=== PATIENT | male | born 2000 | race American Indian/Alaskan Native ===

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

== ENCOUNTER → 2018-01-21 | Outpatient (CLI) | payer OTHER ==
[2018-01-21 16:57] LABS: BASO % 0.3 % (0.0-1.0); EOS # 0.1 10^3/uL (0.0-0.50); EOS % 2.3 % (0.0-3.0); HEMATOCRIT 46.5 % (42.0-52.0); HEMOGLOBIN 15.6 g/dl (13.5-17.5); IMMATURE GRANULOCYTE % 0.3 % (0-3.0); LYMPH # 1.6 10^3/uL (1.5-6.5); LYMPH % 26.7 % (24.0-44.0); MEAN CORPUSCULAR HEMOGLOBIN 28.5 pg (27.0-33.0); MEAN CORPUSCULAR HGB CONC 33.5 g/dl (32.0-36.5); MEAN CORPUSCULAR VOLUME 84.9 fl (80.0-96.0); MONO # 0.4 10^3/uL (0.0-0.8); MONO % 6.1 % (0.0-5.0); NEUTROPHILS # 3.9 10^3/uL (1.8-7.7); NEUTROPHILS % 64.3 % (36.0-66.0); PLATELET COUNT, AUTOMATED 302 10^3/uL (150-450); RED BLOOD COUNT 5.48 10^6/uL (4.30-6.10); RED CELL DISTRIBUTION WIDTH 12.2 % (11.5-14.5)
[2018-01-21 17:20] LABS: ALBUMIN 4.3 GM/DL (3.2-5.2); ALBUMIN/GLOBULIN RATIO 1.19 (1.00-1.93); ALKALINE PHOSPHATASE 55 U/L (45-117); ALT/SGPT 59 U/L (12-78); ANION GAP 8 MEQ/L (8-16); AST/SGOT 26 U/L (7-37); BILIRUBIN,TOTAL 0.4 MG/DL (0.2-1.0); BLOOD UREA NITROGEN 13 MG/DL (7-18); CALCIUM LEVEL 9.4 MG/DL (8.5-10.1); CARBON DIOXIDE LEVEL 29 MEQ/L (21-32); CHLORIDE LEVEL 106 MEQ/L (98-107); CREATININE FOR GFR 1.07 MG/DL (0.70-1.30); GLUCOSE, FASTING 105 MG/DL (70-100); POTASSIUM SERUM 3.9 MEQ/L (3.5-5.1); SODIUM LEVEL 143 MEQ/L (136-145); TOTAL PROTEIN 7.9 GM/DL (6.4-8.2)
== END ==
LOC: M LAB 16:29
DX: Z51.81 Encounter for therapeutic drug level monitoring (principal); Z79.899 Other long term (current) drug therapy
CPT/HCPCS: 80053

== ENCOUNTER → 2018-03-20 | Outpatient (CLI) | payer OTHER ==
[2018-03-20 19:53] LABS: BASO % 0.5 % (0.0-1.0); EOS # 0.1 10^3/uL (0.0-0.50); EOS % 3.2 % (0.0-3.0); HEMATOCRIT 43.4 % (42.0-52.0); HEMOGLOBIN 14.2 g/dl (13.5-17.5); LYMPH # 1.3 10^3/uL (1.5-6.5); LYMPH % 31.8 % (24.0-44.0); MEAN CORPUSCULAR HEMOGLOBIN 28.2 pg (27.0-33.0); MEAN CORPUSCULAR HGB CONC 32.7 g/dl (32.0-36.5); MEAN CORPUSCULAR VOLUME 86.1 fl (80.0-96.0); MONO # 0.3 10^3/uL (0.0-0.8); MONO % 7.1 % (0.0-5.0); NEUTROPHILS # 2.4 10^3/uL (1.8-7.7); NEUTROPHILS % 57.4 % (36.0-66.0); PLATELET COUNT, AUTOMATED 311 10^3/uL (150-450); RED BLOOD COUNT 5.04 10^6/uL (4.30-6.10); RED CELL DISTRIBUTION WIDTH 12.3 % (11.5-14.5); WHITE BLOOD COUNT 4.1 10^3/uL (4.0-10.0)
[2018-03-20 20:14] LABS: ALBUMIN/GLOBULIN RATIO 1.18 (1.00-1.93); ALKALINE PHOSPHATASE 60 U/L (45-117); ALT/SGPT 62 U/L (12-78); ANION GAP 7 MEQ/L (8-16); AST/SGOT 31 U/L (7-37); BILIRUBIN,TOTAL 0.8 MG/DL (0.2-1.0); BLOOD UREA NITROGEN 14 MG/DL (7-18); CALCIUM LEVEL 8.7 MG/DL (8.5-10.1); CARBON DIOXIDE LEVEL 29 MEQ/L (21-32); CHLORIDE LEVEL 106 MEQ/L (98-107); CREATININE FOR GFR 1.05 MG/DL (0.70-1.30); GLUCOSE, FASTING 111 MG/DL (70-100); POTASSIUM SERUM 4.4 MEQ/L (3.5-5.1); SODIUM LEVEL 142 MEQ/L (136-145); TOTAL PROTEIN 7.4 GM/DL (6.4-8.2)
== END ==
LOC: M WUC 15:45
DX: L40.0 Psoriasis vulgaris (principal)
CPT/HCPCS: 80053

== ENCOUNTER → 2018-06-20 | Outpatient (CLI) | payer OTHER ==
[2018-06-20 18:08] LABS: BASO % 0.4 % (0.0-1.0); EOS # 0.1 10^3/uL (0.0-0.50); EOS % 2.5 % (0.0-3.0); HEMATOCRIT 47.6 % (42.0-52.0); HEMOGLOBIN 15.5 g/dl (13.5-17.5); LYMPH # 1.7 10^3/uL (1.5-6.5); LYMPH % 35.2 % (24.0-44.0); MEAN CORPUSCULAR HEMOGLOBIN 28.7 pg (27.0-33.0); MEAN CORPUSCULAR HGB CONC 32.6 g/dl (32.0-36.5); MONO # 0.2 10^3/uL (0.0-0.8); MONO % 4.9 % (0.0-5.0); NEUTROPHILS # 2.8 10^3/uL (1.8-7.7); NEUTROPHILS % 56.8 % (36.0-66.0); PLATELET COUNT, AUTOMATED 316 10^3/uL (150-450); RED BLOOD COUNT 5.41 10^6/uL (4.30-6.10); WHITE BLOOD COUNT 4.9 10^3/uL (4.0-10.0)
[2018-06-20 18:11] LABS: ALBUMIN 4.2 GM/DL (3.2-5.2); ALT/SGPT 41 U/L (12-78); BILIRUBIN,TOTAL 0.7 MG/DL (0.2-1.0); BLOOD UREA NITROGEN 14 MG/DL (7-18); CALCIUM LEVEL 9.1 MG/DL (8.5-10.1); CARBON DIOXIDE LEVEL 29 MEQ/L (21-32); CHLORIDE LEVEL 106 MEQ/L (98-107); CREATININE FOR GFR 0.93 MG/DL (0.70-1.30); GLUCOSE, FASTING 118 MG/DL (70-100); POTASSIUM SERUM 4.4 MEQ/L (3.5-5.1); SODIUM LEVEL 142 MEQ/L (136-145); TOTAL PROTEIN 7.6 GM/DL (6.4-8.2)
== END ==
LOC: M WUC 15:06
PROVIDERS: ATTEND Nurse Practitioner Adult Health
DX: L40.0 Psoriasis vulgaris (principal); Z79.899 Other long term (current) drug therapy; Z71.89 Other specified counseling

== ENCOUNTER → 2019-01-25 | Outpatient (CLI) | payer OTHER ==
[2019-01-25 18:35] LABS: ALBUMIN 4.1 GM/DL (3.2-5.2); ALT/SGPT 34 U/L (12-78); BILIRUBIN,TOTAL 0.6 MG/DL (0.2-1.0); BLOOD UREA NITROGEN 13 MG/DL (7-18); CARBON DIOXIDE LEVEL 29 MEQ/L (21-32); CHLORIDE LEVEL 104 MEQ/L (98-107); CREATININE FOR GFR 1.04 MG/DL (0.70-1.30); GLUCOSE, FASTING 88 MG/DL (70-100); POTASSIUM SERUM 4.1 MEQ/L (3.5-5.1); SODIUM LEVEL 141 MEQ/L (136-145); TOTAL PROTEIN 7.6 GM/DL (6.4-8.2)
[2019-01-25 18:36] LABS: BASO % 0.6 % (0.0-1.0); EOS # 0.3 10^3/uL (0.0-0.5); EOS % 5.1 % (0.0-3.0); HEMATOCRIT 45.5 % (42.0-52.0); HEMOGLOBIN 14.8 g/dl (13.5-17.5); LYMPH # 2.3 10^3/uL (1.5-5.0); LYMPH % 36.2 % (24.0-44.0); MEAN CORPUSCULAR HEMOGLOBIN 28.7 pg (27.0-33.0); MEAN CORPUSCULAR HGB CONC 32.5 g/dl (32.0-36.5); MEAN CORPUSCULAR VOLUME 88.2 fl (80.0-96.0); MONO # 0.4 10^3/uL (0.0-0.8); MONO % 6.4 % (0.0-5.0); NEUTROPHILS # 3.2 10^3/uL (1.5-8.5); NEUTROPHILS % 51.4 % (36.0-66.0); PLATELET COUNT, AUTOMATED 292 10^3/uL (150-450); RED BLOOD COUNT 5.16 10^6/uL (4.30-6.10); WHITE BLOOD COUNT 6.2 10^3/uL (4.0-10.0)
== END ==
LOC: M WUC 14:21
PROVIDERS: ATTEND Nurse Practitioner Adult Health
DX: Z51.81 Encounter for therapeutic drug level monitoring (principal); Z79.899 Other long term (current) drug therapy; L40.0 Psoriasis vulgaris; Z71.89 Other specified counseling

== ENCOUNTER 2019-07-10 12:46 | Observation (INO) | payer OTHER ==
[~2019-07-10] VITALS: Ht 182.9 cm; Wt 112.4 kg
[2019-07-10] MEDS ORDERED: HUMI40KI2 INJ (13:19)
[2019-07-10 13:30] LABS: BASO % 0.7 % (0.0-1.0); EOS # 0.2 10^3/uL (0.0-0.5); EOS % 3.2 % (0.0-3.0); HEMATOCRIT 50.3 % (42.0-52.0); HEMOGLOBIN 16.7 g/dl (13.5-17.5); LYMPH # 1.8 10^3/uL (1.5-5.0); LYMPH % 30.3 % (24.0-44.0); MEAN CORPUSCULAR HEMOGLOBIN 28.4 pg (27.0-33.0); MEAN CORPUSCULAR HGB CONC 33.2 g/dl (32.0-36.5); MEAN CORPUSCULAR VOLUME 85.4 fl (80.0-96.0); MONO # 0.4 10^3/uL (0.0-0.8); MONO % 6.7 % (0.0-5.0); NEUTROPHILS # 3.5 10^3/uL (1.5-8.5); NEUTROPHILS % 58.8 % (36.0-66.0); PLATELET COUNT, AUTOMATED 300 10^3/uL (150-450); RED BLOOD COUNT 5.89 10^6/uL (4.30-6.10)
[2019-07-10 13:46] LABS: MAGNESIUM LEVEL 2.2 MG/DL (1.8-2.4); PHOSPHORUS LEVEL 3.6 MG/DL (2.5-4.9)
--- NOTE | 2019-07-10 13:46 | REP ---
Clinical: Chest pain . Comparison: None . Technique: PA and lateral. Findings: The mediastinum and cardiac silhouette are normal. The lung cano are clear and without acute consolidation, effusion, or pneumothorax. The skeletal structures are intact and normal. Impression: 1. No acute cardiopulmonary process. Electronically Signed by Phillip Estevez MD 07/10/2019 01:37 P
[2019-07-10 13:59] LABS: ALBUMIN 4.5 GM/DL (3.2-5.2); ALT/SGPT 52 U/L (12-78); BILIRUBIN,DIRECT 0.2 MG/DL (0.0-0.2); BILIRUBIN,TOTAL 0.5 MG/DL (0.2-1.0); BLOOD UREA NITROGEN 11 MG/DL (7-18); CALCIUM LEVEL 9.5 MG/DL (8.5-10.1); CARBON DIOXIDE LEVEL 26 MEQ/L (21-32); CHLORIDE LEVEL 108 MEQ/L (98-107); CK-MB VALUE MASS < 1.0 NG/ML (<3.6); CPK CREATINE PHOSPHOKINASE 103 U/L (39-308); CREATININE FOR GFR 0.93 MG/DL (0.70-1.30); FREE T4 1.11 NG/DL (0.76-1.46); GLOMERULAR FILTRATION RATE > 60.0 (>60); GLUCOSE, FASTING 96 MG/DL (70-100); MB/CK RELATIVE INDEX 0.97 (< OR =4); POTASSIUM SERUM 4.1 MEQ/L (3.5-5.1); SODIUM LEVEL 140 MEQ/L (136-145); TOTAL PROTEIN 8.6 GM/DL (6.4-8.2); TROPONIN I < 0.02 NG/ML (< 0.10)
[2019-07-10 14:00] LABS: AMPHETAMINES LEVEL URINE NEGATIVE (NEGATIVE); BARBITURATES URINE NEGATIVE (NEGATIVE); BENZODIAZEPINES URINE NEGATIVE (NEGATIVE); CANNABINOIDS URINE NEGATIVE (NEGATIVE); COCAINE METABOLITE URINE NEGATIVE (NEGATIVE); METHADONE URINE NEGATIVE (NEGATIVE); OPIATES URINE NEGATIVE (NEGATIVE); PHENCYCLIDINE URINE NEGATIVE (NEGATIVE)
[2019-07-10] MEDS: METOPROLOL 5 MG/5 ML VIAL IV SCH ×3 (14:19→14:31)
[2019-07-10] MEDS ORDERED: CALC0.009 TOP (14:52)
[2019-07-10] MEDS ORDERED: ASPI81CH8 PO (15:04)
[2019-07-10] MEDS ORDERED: ATEN25TA PO (15:04)
[2019-07-10] MEDS ORDERED: NS 1,000 ML IV ONE (15:30)
[2019-07-10] MEDS ORDERED: ISOVUE-370 76% 100ML VIAL (Q9967) As Ordered ONE (15:53)
[2019-07-10] MEDS: atenoloL 25 MG TAB PO SCH ×2 (15:53→20:33)
[2019-07-10] MEDS ORDERED: ENOXAPARIN 40 MG/0.4 ML SYRINGE (J1650) SC ONE (16:00)
[2019-07-10] MEDS ORDERED: ASPIRIN 81 MG CHEW TABLET PO ONE (16:00)
[2019-07-10 16:04] LABS: HEMOGLOBIN A1c 5.7 %
[2019-07-10 16:15] VITALS: BP 129/68
--- NOTE | 2019-07-10 16:26 | REP ---
Clinical: Acute chest pain with shortness of breath and tachycardia. Technique: Axial contrast enhanced images from the thoracic inlet to the upper abdomen using 100 ml Isovue 370 intravenous contrast material with coronal and sagittal re-formations. Findings: Satisfactory enhancement of the pulmonary vasculature is achieved and no filling defects are identified to suggest pulmonary embolus. Thoracic aorta is normal caliber without aneurysm or dissection. Heart and pericardium are normal. Bilateral lung cano are well aerated and clear without acute pulmonary parenchymal consolidation or atelectasis. No nodule or mass lesion. No pleural effusion/reaction. No pneumothorax. No adenopathy. Impression: No evidence for pulmonary embolus. No acute pleuroparenchymal or mediastinal process. Electronically Signed by Phillip Estevez MD 07/10/2019 04:17 P
[2019-07-10 18:00] VITALS: BP 124/62
[2019-07-10 22:00] VITALS: BP 124/66
[2019-07-11 02:00] VITALS: BP 124/70
[2019-07-11 06:00] VITALS: BP 120/56
--- NOTE | 2019-07-11 06:44 | ECGEPIP ---
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
[2019-07-11 06:49] LABS: HEMATOCRIT 46.8 % (42.0-52.0); HEMOGLOBIN 15.6 g/dl (13.5-17.5); MEAN CORPUSCULAR HEMOGLOBIN 28.9 pg (27.0-33.0); MEAN CORPUSCULAR HGB CONC 33.3 g/dl (32.0-36.5); MEAN CORPUSCULAR VOLUME 86.8 fl (80.0-96.0); PLATELET COUNT, AUTOMATED 275 10^3/uL (150-450); RED BLOOD COUNT 5.39 10^6/uL (4.30-6.10); WHITE BLOOD COUNT 6.9 10^3/uL (4.0-10.0)
[2019-07-11 07:09] LABS: ALBUMIN 3.6 GM/DL (3.2-5.2); ALT/SGPT 54 U/L (12-78); BILIRUBIN,DIRECT 0.1 MG/DL (0.0-0.2); BILIRUBIN,TOTAL 0.5 MG/DL (0.2-1.0); BLOOD UREA NITROGEN 13 MG/DL (7-18); CALCIUM LEVEL 8.6 MG/DL (8.5-10.1); CARBON DIOXIDE LEVEL 26 MEQ/L (21-32); CHLORIDE LEVEL 109 MEQ/L (98-107); CHOLESTEROL LEVEL 164 MG/DL (<200); CHOLESTEROL RISK RATIO 4.205 (<5); CREATININE FOR GFR 0.92 MG/DL (0.70-1.30); GLOMERULAR FILTRATION RATE > 60.0 (>60); GLUCOSE, FASTING 118 MG/DL (70-100); HDL CHOLESTEROL 39 MG/DL (>40); LDL CHOLESTEROL 85 MG/DL (<100); NON-HDL-C 125 MG/DL; POTASSIUM SERUM 3.4 MEQ/L (3.5-5.1); SODIUM LEVEL 141 MEQ/L (136-145); TOTAL PROTEIN 7.4 GM/DL (6.4-8.2); TRIGLYCERIDES LEVEL 198 MG/DL (<150)
[2019-07-11] MEDS ORDERED: SELF1KIT MC (07:09)
--- NOTE | 2019-07-11 07:37 | ECHO ---
DATE OF PROCEDURE: 07/10/2019 REFERRING PROVIDER: Dr. Carey Rocha LOCATION; Room 4233 REASON FOR THE STUDY: Cardiac arrhythmias. 2D MEASUREMENTS: IVS: 1.2 cm LV: 5.0 cm LVPW: 1.1 cm LA: 3.9 cm Aorta: 3.1 cm IVC: 1.5 cm DOPPLER MEASUREMENTS: Peak velocity across the aortic valve: 1.1 meters per second Peak velocity across the LVOT: 0.7 meters per second Mitral E: 0.72 Maximum tricuspid valve velocity: 2.0 meters per second 2D COMMENTS: 1. Normal left ventricular size, wall thickness, and normal global left ventricular systolic function. The estimated left ventricular systolic ejection fraction is 55-60%. 2. Normal left atrium. Normal right atrium and right ventricle. 3. The atrial septum appeared to be normal without evidence of defect or shunt. 4. Normal aortic root. 5. No pericardial effusion seen. 6. The aortic valve, mitral valve, and tricuspid valve, as well as the pulmonic valve appeared to be normal. The proximal pulmonary artery branches also appeared to be normal. 7. The inferior vena cava was normal in size, central venous pressure is most likely normal. DOPPLER: Only trace tricuspid regurgitation detected. Calculated pulmonary artery systolic pressure was normal. Assessment of the left ventricular diastolic function was limited in view of the underlying atrial fibrillation. IMPRESSION: 1. Low normal global left ventricular systolic function. Assessment of the left ventricular diastolic function was limited in view of the underlying arrhythmias. 2. No significant valvular heart disease but trace tricuspid regurgitation. MTDD
[2019-07-11 08:08] VITALS: BP 120/56
[2019-07-11] MEDS: atenoloL 25 MG TAB PO SCH (08:08)
[2019-07-11] MEDS ORDERED: POTASSIUM CHLORIDE 10 MEQ SR TABLET PO ONE (08:30)
[2019-07-11] MEDS ORDERED: ASPIRIN 81 MG CHEW TABLET PO SCH (09:00)
[2019-07-11] MEDS ORDERED: ENOXAPARIN 40 MG/0.4 ML SYRINGE (J1650) SC SCH (09:00)
[2019-07-11 10:00] VITALS: BP 139/76
--- NOTE | 2019-07-11 10:07 | DSES ---
DATE OF ADMISSION: 07/10/2019 DATE OF DISCHARGE: PRIMARY CARE PHYSICIAN: None. DISCHARGE INSTRUCTIONS: Followup with primary care physician, to be arranged by hospitalist's service. To be seen within 5 days. Primary care provider (PCP) to refer to team assistant,if patient requests. Patient to check his blood pressure and pulse prior to taking atenolol and to hold atenolol if heart rate is less than 60 or systolic pressure less than 100. DISCHARGE DIAGNOSES: 1. Paroxysmal atrial fibrillation with rapid ventricular rate of 143. 2. Psoriasis. 3. History of asthma. 4. Hypokalemia. DISCHARGE MEDICATION: Atenolol 25 mg twice a day. may resume humira and topical ointments. HOSPITAL COURSE: This is a 19-year-old male who woke up in the morning while trying to get ready for the day with complaints of palpitations, chest tightness, and shortness of breath with dyspnea on exertion, which lasted for about half an hour, and was seen in urgent care. EKG showed atrial fibrillation with rapid ventricular rate. He was then transported, brought in by ambulance, to the emergency room, where he was found to have a heart rate of 143 and was in atrial fibrillation. He was given three doses of metoprolol 5 mg each with improvement to 80-90 beats per minute. TSH and thyroid function tests were normal. Patient had a negative urine toxicology screen. Denied any caffeinated beverage or recreational drug use, aside from occasional marijuana. Patient was admitted by hospitalist overnight and placed on 25 mg twice a day with conversion to sinus rhythm with rate of 60-80. Due to complaints of chest pain, shortness of breath, and tachyarrhythmia, CT chest was performed, which was negative for pulmonary embolism. Echocardiogram showed ejection fraction (EF) of 55-60%, with low normal global left ventricle systolic function. Patient was instructed to check his blood pressure and pulse prior to taking atenolol at home, and for primary care physician to refer to team assistant, if recurrent and pt requests. Since [id number] was zero, no anticoagulation was needed. Per Dr. Marin, team assistant traffic operations engineer, no need for immediate fu with team assistant unless PCP recommends for persistent Afib. PHYSICAL EXAM ON DISCHARGE: Temperature 97.4, pulse 80, respiratory rate 15, blood pressure 120/56, 96% on room air. Generally, awake, alert, oriented to person, place, and time. Answering questions appropriately. Lungs are clear to auscultation. No wheezing, rales, or rhonchi. HEART: S1, S2. Sinus rhythm. Nondisplaced point of maximal impulse. No murmurs or rubs. ABDOMEN: Soft, nontender, nondistended. EXTREMITIES: No cyanosis, clubbing, or pitting edema. SKIN: Patient has multiple psoriatic erythematous and silvery scaly plaques on the face, chest, abdomen, bilateral arms, and lower extremities. LABS ON DISCHARGE: White count 6.9, hemoglobin 15, hematocrit 46, platelet 275. Sodium 141, potassium 3.4, chloride 109, bicarbonate 26, BUN 13, creatinine 0.9, glucose of 118, A1c of 5.7, magnesium 2.2, triglycerides 198, total cholesterol 164, LDL 85, non-HDL 125, total HDL 39. TSH 2.73, free T4 1.1. IMAGING STUDIES: CT chest; no pulmonary embolism. No acute pleuroparenchymal mediastinal process. Time spent on hospital discharge: 30 minutes. TYRESED
--- NOTE | 2019-07-11 11:06 | HPE ---
DATE OF ADMISSION: 07/10/2019 PRIMARY CARE PHYSICIAN: None. CHRONIC DISEASE MANAGER: Dr. Robert Denise, in [place], for his psoriasis. Previously treated by a assembler trim for asthma. CHIEF COMPLAINT: Palpitations. HISTORY OF PRESENTING ILLNESS: A 19-year-old male with a history of psoriasis and asthma, presents to the emergency room with acute onset of shortness of breath, palpitations, without lightheadedness or dizziness. [place] like his heart was beating "weirdly." When he woke up this morning getting ready, patient felt winded and presented to Urgent Care in [facility], where he was found to have atrial fibrillation with rapid ventricular response. He was then subsequently brought in by ambulance to the emergency room, was found to have a heart rate of 143 with rapid ventricular rate and given 3 doses of metoprolol. Patient denies any recreational drug use aside from occasional marijuana. He denies any excessive caffeinated beverage use, use of Red Bull or any other stimulants, with no prior history of palpitations or shortness of breath and chest rate that abated once the heart rate had decreased. Patient had this feeling for about 30 minutes, got better when he was given metoprolol. Blood pressure was well-maintained at over 100 to about 110-116 systolic. EKG had no delta waves. He was atrial fibrillation with rapid ventricular response with rate of 143. Patient otherwise denies any prior episodes. Denies any syncope or presyncope. Denies any hematemesis, bright red blood per rectum, melena or black, tarry stools. No weight gain, weight loss or changes in appetite. No difficulty sleeping. No cough, fever or chills. No dysphagia, odynophagia. No nausea, vomiting, diarrhea or abdominal pain. No dysuria, urgency or frequency. No prior history of diabetes. Denied any polyphagia or polyuria or polydipsia. PAST MEDICAL HISTORY: 1. Psoriasis. 2. Asthma. PAST SURGICAL HISTORY: None. SOCIAL HISTORY: Lives with his girlfriend. In college. Mother is Meghan Bhandari, number is . Denies any cigarette use. Drinks beer once every couple of years. Uses recreational cannabis, which is not prescribed by a physician, once or twice every two weeks. Denies cocaine use or methamphetamine use. Urine drug screen was negative. CODE STATUS: FULL CODE. FAMILY HISTORY: Stepfather in his 50s. Mother in her 40s with diabetes. Maternal grandfather with coronary artery disease, . Mother had gestational diabetes. Brother has Kawasaki. REVIEW OF SYSTEMS: Per history of present illness (HPI). A 12 point system otherwise negative. PHYSICAL EXAMINATION: Temperature 99.4, pulse 156-160, respiratory rate 20, blood pressure 120/76, 98% on room air. GENERAL: Patient has multiple psoriatic lesions and plaques with silvery scale, erythematous and scaling on the face, bilateral upper and lower extremities, chest, abdomen and back. No jugular venous distention (JVD). No thyromegaly. Anicteric sclerae. Dry mucous membranes. No cervical lymphadenopathy. LUNGS: Clear to auscultation. No wheezing, rales or rhonchi. HEART: S1, S2. Irregularly irregular. No murmurs, rubs or gallops. ABDOMEN: Soft, nontender, nondistended. Positive bowel sounds in all four quadrants. No rebound or guarding. No hepatosplenomegaly. EXTREMITIES: No cyanosis, clubbing or any pitting edema. LABORATORY DATA: Urine toxicology screen is negative. White count 6, hemoglobin 16, hematocrit 50, platelet count 300. Sodium 140, potassium 4.1, chloride 108, bicarbonate 26, BUN 11, creatinine 0.93, glucose 96, calcium 9.5, magnesium 2.2, phosphorus 3.6. Total bilirubin 0.5, direct bilirubin 0.2, AST 27, ALT 52, alkaline phosphatase 62. Total CK 103. MB fraction less than 1. Troponin less than 0.02. Total protein 86, albumin 4.5. TSH 2.73. Free T4 1.11. Urine toxicology screen negative for opiates, methadone, barbiturates, phencyclidine, amphetamines, benzodiazepines, cocaine and cannabinoids. IMAGING STUDY: Chest x-ray: No acute cardiopulmonary process. ASSESSMENT AND PLAN: This is a 19-year-old male with history of psoriasis and asthma, presented with acute onset of palpitations, chest pain and shortness of breath, found to have new onset atrial fibrillation with rapid ventricular response at a local urgent care, given 3 doses of intravenous metoprolol with subsequent improvement. IMPRESSION: 1. Acute onset atrial fibrillation with rapid ventricular response. Unknown whether it is paroxysmal, permanent or chronic. At this time, echocardiogram will be done. [id number] Score is zero. No anticoagulation aside from Lovenox for deep venous thrombosis (DVT) prophylaxis. Rule out pulmonary embolism (PE) in light of shortness of breath, tachycardia and chest pain. Obtain CT chest with angiogram. Atenolol 25 mg twice a day. Titrate dose as needed. Continue on telemetry monitoring. May need cardiology referral and electrophysiology (EP) study, if persistent. no oral AC needed. abstain from alcohol and oral stimulants. 2. History of psoriasis. May continue on topical treatment with triamcinolone. Patient receives Humira as outpatient as well as calcipotriene. 3. History of asthma. No wheezing. Patient needs new primary care physician as outpatient. 4. Deep venous thrombosis (DVT) prophylaxis. With compression stockings. 5. Diet: Regular diet. MTDD
== END 2019-07-11 11:07 | disposition home or self-care (01) ==
LOC: EDBD 12:46 → M ED 12:46 → M ED INP 14:57 → ENRESERVTM 15:17 → ENRESERVDT 15:17 → M MSPAV 16:12
PROVIDERS: ADMIT General Practice; ATTEND General Practice
DX: I48.0 Paroxysmal atrial fibrillation (principal); L40.9 Psoriasis, unspecified; E87.6 Hypokalemia; J45.909 Unspecified asthma, uncomplicated; F12.10 Cannabis abuse, uncomplicated
CPT/HCPCS: 36415; 71046; 71275; 80048; 80061; 80076; 80307; 82550; 82553; 83036; 83735; 84100; 84439; 84443; 84484; 85025; 85027; 93005; 93041; 93306; 94760; 96372; 96374; 96376; 99285; G0463; J1650; Q9967

== ENCOUNTER → 2022-07-10 | Outpatient (REF) | payer OTHER ==
[~2022-07-10] MED LIST: ASPI81CH8 PO; ATEN25TA PO; CALC0.009 TOP; HUMI40KI2 INJ; SELF1KIT MC
[2022-07-10 18:13] LABS: HEMATOCRIT 48.1 % (42.0-52.0); HEMOGLOBIN 15.6 g/dl (13.5-17.5); MEAN CORPUSCULAR HEMOGLOBIN 29.4 pg (27.0-33.0); MEAN CORPUSCULAR HGB CONC 32.4 g/dl (32.0-36.5); MEAN CORPUSCULAR VOLUME 90.8 fl (80.0-96.0); PLATELET COUNT, AUTOMATED 312 10^3/uL (150-450); WHITE BLOOD COUNT 5.4 10^3/uL (4.0-10.0)
[2022-07-10 18:46] LABS: ALBUMIN 4.2 G/DL (3.2-5.2); ALKALINE PHOSPHATASE 51 U/L (46-116); ALT/SGPT 43 U/L (7.0-40); AST/SGOT 22 U/L (<34); BILIRUBIN,DIRECT 0.3 MG/DL (<0.4); BILIRUBIN,TOTAL 1.1 MG/DL (0.3-1.2); BLOOD UREA NITROGEN 17 MG/DL (9-23); CALCIUM LEVEL 9.5 MG/DL (8.5-10.1); CARBON DIOXIDE LEVEL 30 MMOL/L (20-31); CHLORIDE LEVEL 104 MMOL/L (98-107); CREATININE FOR GFR 0.91 MG/DL (0.70-1.30); GLOMERULAR FILTRATION RATE > 60.0 (>60); GLUCOSE, FASTING 111 MG/DL (60-100); POTASSIUM SERUM 4.2 MMOL/L (3.5-5.1); SODIUM LEVEL 142 MMOL/L (136-145); TOTAL PROTEIN 7.4 G/DL (5.7-8.2)
[2022-07-10 19:02] LABS: HEPATITIS B SURFACE ANTIGEN NEGATIVE (NEGATIVE)
[2022-07-10 19:14] LABS: HIV 1&2 SCREEN CENTAUR NEGATIVE (NEGATIVE)
[2022-07-10 19:21] LABS: HEPATITIS C VIRUS ABY INDEX 0.1 INDEX (<0.8)
== END ==
LOC: M PLALAB 17:20
DX: L40.9 Psoriasis, unspecified (principal)

== ENCOUNTER 2022-09-20 22:41 | Emergency (ER) | payer OTHER ==
[~2022-09-20] VITALS: Ht 188 cm; Wt 102.0 kg
[2022-09-20] MEDS ORDERED: LORazepam 2 MG/ML 1ML VIAL IV STA (22:53)
[2022-09-20] MEDS ORDERED: HALOPERIDOL 5MG/ML 1ML VIAL IV ONE (22:55)
[2022-09-20] MEDS ORDERED: NS 1,000 ML IV ONE (22:55)
[2022-09-20 23:22] LABS: BASO # 0.1 10^3/uL (0.0-0.2); BASO % 0.7 % (0.0-1.0); EOS # 0.2 10^3/uL (0.0-0.5); EOS % 2.1 % (0.0-3.0); HEMATOCRIT 43.7 % (42.0-52.0); HEMOGLOBIN 15.2 g/dl (13.5-17.5); LYMPH # 2.1 10^3/uL (1.5-5.0); LYMPH % 28.3 % (24.0-44.0); MEAN CORPUSCULAR HEMOGLOBIN 29.6 pg (27.0-33.0); MEAN CORPUSCULAR HGB CONC 34.8 g/dl (32.0-36.5); MEAN CORPUSCULAR VOLUME 85.2 fl (80.0-96.0); MONO # 0.5 10^3/uL (0.0-0.8); MONO % 6.1 % (2.0-8.0); NEUTROPHILS # 4.7 10^3/uL (1.5-8.5); NEUTROPHILS % 62.5 % (36.0-66.0); PLATELET COUNT, AUTOMATED 299 10^3/uL (150-450); RED BLOOD COUNT 5.13 10^6/uL (4.30-6.10); WHITE BLOOD COUNT 7.5 10^3/uL (4.0-10.0)
[2022-09-20 23:43] LABS: ETHYL ALCOHOL (ETHANOL) < 0.003 % (0.000-0.010); LIPASE 33 U/L (12-53)
[2022-09-20 23:45] LABS: ALBUMIN 4.5 G/DL (3.2-5.2); ALKALINE PHOSPHATASE 55 U/L (46-116); ALT/SGPT 20 U/L (7.0-40); AST/SGOT 16 U/L (<34); BILIRUBIN,TOTAL 0.6 MG/DL (0.3-1.2); BLOOD UREA NITROGEN 13 MG/DL (9-23); CALCIUM LEVEL 8.8 MG/DL (8.5-10.1); CARBON DIOXIDE LEVEL 22 MMOL/L (20-31); CHLORIDE LEVEL 107 MMOL/L (98-107); GLOMERULAR FILTRATION RATE > 60.0 (>60); GLUCOSE, FASTING 136 MG/DL (60-100); MAGNESIUM LEVEL 1.8 MG/DL (1.8-2.4); POTASSIUM SERUM 3.6 MMOL/L (3.5-5.1); SODIUM LEVEL 142 MMOL/L (136-145); TOTAL PROTEIN 7.4 G/DL (5.7-8.2)
[2022-09-21 08:45] LABS: AMPHETAMINES LEVEL URINE NEGATIVE (NEGATIVE); BARBITURATES URINE NEGATIVE (NEGATIVE); BENZODIAZEPINES URINE NEGATIVE (NEGATIVE)
[2022-09-21 08:46] LABS: COCAINE METABOLITE URINE NEGATIVE (NEGATIVE); METHADONE URINE NEGATIVE (NEGATIVE); OPIATES URINE NEGATIVE (NEGATIVE); PHENCYCLIDINE URINE NEGATIVE (NEGATIVE)
[2022-09-21 08:53] LABS: CANNABINOIDS URINE POSITIVE (NEGATIVE)
[2022-09-21 09:03] VITALS: BP 130/69
== END 2022-09-21 09:09 | disposition home or self-care (01) ==
LOC: EDBD 22:41 → M ED 22:41
DX: F12.90 Cannabis use, unspecified, uncomplicated (principal); I10 Essential (primary) hypertension; L40.9 Psoriasis, unspecified; Z79.899 Other long term (current) drug therapy
CPT/HCPCS: 36415; 80053; 80307; 82077; 83690; 83735; 85025; 93005; 96374; 96375; 99285; J1630; J2060

== ENCOUNTER → 2024-07-19 | Outpatient (CLI) | payer OTHER ==
[~2024-07-19] MED LIST changes: +CALC0.0017 TOP; -CALC0.009 TOP
[2024-07-19 13:49] LABS: HEMATOCRIT 45.7 % (42.0-52.0); HEMOGLOBIN 14.7 g/dl (13.5-17.5); MEAN CORPUSCULAR HEMOGLOBIN 28.2 pg (27.0-33.0); MEAN CORPUSCULAR HGB CONC 32.2 g/dl (32.0-36.5); MEAN CORPUSCULAR VOLUME 87.5 fl (80.0-96.0); PLATELET COUNT, AUTOMATED 304 10^3/uL (150-450); RED BLOOD COUNT 5.22 10^6/uL (4.30-6.10); WHITE BLOOD COUNT 5.8 10^3/uL (4.0-10.0)
[2024-07-19 13:54] LABS: ALBUMIN 3.9 G/DL (3.2-5.2); ALKALINE PHOSPHATASE 57 U/L (40-129); ALT/SGPT 44 U/L (7.0-40); AST/SGOT 20 U/L (<34); BILIRUBIN,TOTAL 0.3 MG/DL (0.3-1.2); BLOOD UREA NITROGEN 10 MG/DL (9-23); CALCIUM LEVEL 8.9 MG/DL (8.5-10.1); CARBON DIOXIDE LEVEL 29 MMOL/L (20-31); CHLORIDE LEVEL 107 MMOL/L (98-107); CHOLESTEROL LEVEL 149 MG/DL (<200); CHOLESTEROL RISK RATIO 3.29 (<5); CREATININE FOR GFR 0.76 MG/DL (0.70-1.30); GLOMERULAR FILTRATION RATE > 60.0 (>60); GLUCOSE, FASTING 96 MG/DL (60-100); HDL CHOLESTEROL 45.2 MG/DL (>40); LDL CHOLESTEROL 79.6 MG/DL (<100); NON-HDL-C 103.8 MG/DL; POTASSIUM SERUM 4.2 MMOL/L (3.5-5.1); SODIUM LEVEL 141 MMOL/L (136-145); TOTAL PROTEIN 7.5 G/DL (5.7-8.2); TRIGLYCERIDES LEVEL 121 MG/DL (<150)
[2024-07-19 13:56] LABS: FREE T4 1.11 NG/DL (0.89-1.76); THYROID STIMULATING HORMONE 2.144 uIU/ML (0.55-4.78)
[2024-07-19 13:58] LABS: HEMOGLOBIN A1c 5.1 % (4.0-6.0); TOTAL 25(OH) VITAMIN D 13.2 NG/ML (20.0-100.0)
== END ==
LOC: M WUC 09:36
DX: I48.0 Paroxysmal atrial fibrillation (principal); E55.9 Vitamin D deficiency, unspecified; I10 Essential (primary) hypertension

== ENCOUNTER → 2025-03-14 | Outpatient (CLI) | payer OTHER ==
[2025-03-14 19:09] LABS: BASO # 0.0 10^3/uL (0.0-0.2); BASO % 0.6 % (0.0-1.0); EOS # 0.2 10^3/uL (0.0-0.5); EOS % 2.6 % (0.0-3.0); LYMPH # 2.2 10^3/uL (1.5-5.0); LYMPH % 30.6 % (24.0-44.0); MONO # 0.4 10^3/uL (0.0-0.8); MONO % 5.4 % (2.0-8.0); NEUTROPHILS # 4.4 10^3/uL (1.5-8.5); NEUTROPHILS % 60.7 % (36.0-66.0); PLATELET COUNT, AUTOMATED 320 10^3/uL (150-450)
[2025-03-14 19:41] LABS: ALT/SGPT 30 U/L (7.0-40); AST/SGOT 22 U/L (<34); CALCIUM LEVEL 9.2 MG/DL (8.5-10.1); CARBON DIOXIDE LEVEL 28 MMOL/L (20-31); CHLORIDE LEVEL 101 MMOL/L (98-107); CHOLESTEROL LEVEL 171 MG/DL (<200); CHOLESTEROL RISK RATIO 3.63 (<5); CREATININE FOR GFR 0.85 MG/DL (0.70-1.30); GLOMERULAR FILTRATION RATE > 90.0 (>60); LDL CHOLESTEROL 97.6 MG/DL (<100); NON-HDL-C 124.0 MG/DL; POTASSIUM SERUM 4.0 MMOL/L (3.5-5.1); SODIUM LEVEL 141 MMOL/L (136-145); TRIGLYCERIDES LEVEL 132 MG/DL (<150)
[2025-03-14 19:42] LABS: FREE T4 1.25 NG/DL (0.89-1.76)
[2025-03-14 19:43] LABS: TOTAL 25(OH) VITAMIN D 34.4 NG/ML (20.0-100.0)
[2025-03-14 19:47] LABS: ESTIMATED AVERAGE GLUCOSE 111.0 MG/DL (60-110)
== END ==
LOC: M WUC 15:35
DX: I48.0 Paroxysmal atrial fibrillation (principal); E55.9 Vitamin D deficiency, unspecified; I10 Essential (primary) hypertension

== ENCOUNTER → 2025-04-07 | Outpatient (CLI) | payer OTHER | LOC: M WUC 08:23 | DX: Z00.00 Encounter for general adult medical examination without abnormal findings (principal) ==